=== PATIENT | male | born 1990 | race Caucasian/White ===

== ENCOUNTER 2023-06-14 09:37 | Emergency (ER) | payer MEDICAID ==
[~2023-06-14] VITALS: Ht 167.6 cm; Wt 104.0 kg
[2023-06-14 10:19] VITALS: TEMP 98.2
[2023-06-14 10:47] LABS: BASOPHILS % (AUTO) 0.4 % (0.0-2.0); EOSINOPHILS % (AUTO) 2.1 % (1.0-6.0); HEMATOCRIT 47.7 % (41-53); HEMOGLOBIN 15.9 g/dL (13.5-17.5); LYMPHOCYTES # (AUTO) 2.1 K/uL (1.0-4.8); LYMPHOCYTES % (AUTO) 21.1 % (22.0-44.0); MEAN CORPUSCULAR HEMOGLOBIN 26.1 pg (26.0-34.0); MEAN CORPUSCULAR HGB CONC 33.3 G/dL (31.0-37.0); MEAN CORPUSCULAR VOLUME 78 fL (80-100); MONOCYTES # (AUTO) 1.1 K/uL (0.1-1.0); MONOCYTES % (AUTO) 10.5 % (2.0-9.0); NEUTROPHILS # (AUTO) 6.6 K/uL (1.8-7.7); NEUTROPHILS % (AUTO) 65.9 % (40.0-70.0); PLATELET COUNT (AUTO) 263 K/uL (150-450); RED BLOOD CELL COUNT(AUTO) 6.08 MIL/uL (4.50-5.90); WHITE BLOOD COUNT (AUTO) 10.1 K/uL (4.5-11.0)
[2023-06-14 10:58] LABS: ANION GAP 12 mmol/L (8-16); CALCIUM, TOTAL 8.4 mg/dL (8.8-10.5); CARBON DIOXIDE 24 mmol/L (22-29); CHLORIDE 101 mmol/L (98-107); CREATININE 0.88 mg/dL (0.60-1.30); GLOMERULAR FILTR. RATE CALC > 60 mL/min (>60); GLUCOSE,RANDOM 98 mg/dL (70-110); POTASSIUM 3.4 mmol/L (3.5-5.1); SODIUM SERUM 137 mmol/L (136-145); UREA NITROGEN, BLOOD 22 mg/dL (7-18)
[2023-06-14 11:05] LABS: TROPONIN I-HIGH SENSITIVITY 5 ng/L (<76)
[2023-06-14 11:23] LABS: ALANINE AMINOTRANSFERASE 43 U/L (12-78); ALBUMIN 3.7 g/dL (3.4-5.0); ALKALINE PHOSPHATASE 58 U/L (46-116); ASPARTATE AMINOTRANSFERASE 23 U/L (15-37); BILIRUBIN,TOTAL 0.3 mg/dL (0.1-1.0); CREATINE KINASE, TOTAL ONLY 240 U/L (39-308); TOTAL PROTEIN, SERUM 7.2 g/dL (6.4-8.2)
[2023-06-14 11:43] LABS: COVID AG,FIA SOURCE NASAL SWAB
[2023-06-14] MEDS: IBUPROFEN 600 MG TABLET PO ONE (12:04)
[2023-06-14] MEDS: ONDANSETRON HCL 4 MG TABLET PO ONE (12:04)
[2023-06-14] MEDS: ACETAMINOPHEN 500 MG TABLET PO ONE (12:04)
[2023-06-14 12:23] LABS: SARS-COV2 (COVID) ANTIGEN,FIA Negative (Negative)
[2023-06-14 12:24] LABS: INFLUENZA TYPE A NEGATIVE FOR TYPE A (NEGATIVE); INFLUENZA TYPE B NEGATIVE FOR TYPE B (NEGATIVE)
[2023-06-14] MEDS ORDERED: ACET-3385 PO (12:30)
[2023-06-14] MEDS ORDERED: IBUP-1492 PO (12:30)
[2023-06-14 12:45] VITALS: BP 120/82; PULSE 90; RESP 16
== END 2023-06-14 13:06 | disposition home or self-care (01) ==
LOC: EMS 09:37
DX: R05.9 Cough, unspecified (principal); R06.02 Shortness of breath; Z20.822 Contact with and (suspected) exposure to COVID-19
CPT/HCPCS: 99285; 71045; 87426; 80053; 82550; 83880; 84484; 85025; 87804; 36415; 93005; Q0162